=== PATIENT | male | born 1980 | race Caucasian/White ===

== ENCOUNTER 2017-03-22 09:20 | Emergency (ER) | payer SELFPAY ==
[~2017-03-22] VITALS: Ht 175.3 cm; Wt 104.3 kg
[2017-03-22] MEDS ORDERED: IV NORMAL SALINE 1000ML BAG 1,000 ML IV ONE (10:15)
[2017-03-22 10:56] LABS: CALCIUM 8.4 mg/dL (8.5-10.1); GFR 84.5; POTASSIUM 4.9 mmol/L (3.5-5.1)
[2017-03-22 10:58] LABS: C-REACTIVE PROTEIN 10.3 mg/L (0-3.3)
[2017-03-22 11:08] LABS: BILIRUBIN,URINE NEGATIVE (NEG); GLUCOSE,URINE NEGATIVE (NEG); NITRITE,URINE NEGATIVE (NEG); PROTEIN,URINE NEGATIVE (NEG-TRACE)
[2017-03-22 11:09] LABS: CKMB MASS 1.4 ng/mL (0.0-3.6)
[2017-03-22 11:16] LABS: SQUAMOUS EPITHELIAL CELL,UR OCC /LPF
[2017-03-22 11:17] LABS: BACTERIA,URINE FEW /HPF (0-FEW); BARBITURATES NEG (NEG); BENZODIAZEPINES NEG (NEG); CANNABINOIDS NEG (NEG); COCAINE POS (NEG); METHADONE NEG (NEG); OPIATES POS (NEG); PHENCYCLIDINE NEG (NEG)
--- NOTE | 2017-03-22 11:37 | RAD ---
CT head without contrast 03/22/2017 Clinical indication: Syncope. Comparison: None. Technique: Multiple CT images of the head were obtained without contrast. RS Compliance Statement: One or more of the following individualized dose reduction techniques were utilized for this examination: 1. Automated exposure control 2. Adjustment of the mA and/or kV according to patient size 3. Use of iterative reconstruction technique Findings: No acute intracranial hemorrhage or extra-axial fluid collection. The rai-white matter interfaces are maintained. No midline shift. The ventricles and subarachnoid spaces are normal in size and configuration for age. The visualized mastoid air cells and paranasal sinuses are well aerated. Impression: No acute intracranial hemorrhage.
[2017-03-22 12:14] LABS: BASO % 0 % (0-3); EOS % 4 % (0-3); HEMATOCRIT 43.9 % (39.0-53.0); HEMOGLOBIN 14.7 g/dL (13.0-17.5); LYMPH # 1.8 x10^3/uL (1.0-4.8); LYMPH % 20 % (24-48); MEAN CORPUSCULAR HEMOGLOBIN 30 pg (25-35); MEAN CORPUSCULAR HGB CONC 33 g/dL (31-37); MEAN CORPUSCULAR VOLUME 90 fL (79-100); MONO % 12 % (0-9); NEUT % 63 % (31-73); PLATELET COUNT 350 x10^3/uL (140-400); RED BLOOD COUNT 4.87 x10^6/uL (4.30-5.70); RED CELL DISTRIBUTION WIDTH 13.2 % (11.5-14.5); WHITE BLOOD COUNT 9.2 x10^3/uL (4.0-11.0)
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
--- NOTE | 2017-03-22 13:18 | EKG ---
[facility] [address] [place] [address] Test Date: 2017-03-22 Test Time: 09:49:53 Pat Name: DEWEY KEBEDE Department: Room: Gender: M Doors Prefitter: : 1980 Requested By: SUDHAKAR ERIC Order Number: [id number] Reading MD: Measurements Intervals [place] Rate: 78 P: 34 [place]: 134 QRS: 58 QRSD: 84 T: 26 QT: 348 QTc: 400 Interpretive Statements SINUS RHYTHM QRS(T) CONTOUR ABNORMALITY CONSIDER INFERIOR MYOCARDIAL DAMAGE POSSIBLY ABNORMAL ECG RI6.01 No previous ECG available for comparison
--- NOTE | 2017-03-22 13:38 | RAD ---
AP chest 03/22/2017 Clinical indication: Syncope. Comparison: None. Findings: Cardiac and mediastinal silhouettes are unremarkable. No pleural effusion, pneumothorax or focal consolidation. Impression: No acute cardiopulmonary abnormality.
[2017-03-22 13:50] VITALS: BP 126/78
--- NOTE | 2017-03-22 14:31 | RAD ---
4 views right and left knee 03/22/2017 Clinical indication: Syncope with fall and bilateral knee pain. Comparison: None. Findings: Right knee: There is a tiny subcentimeter curvilinear ossific density adjacent to the lateral tibial plateau only seen on the frontal view. Normal bony alignment. No significant knee joint effusion. Soft tissues are unremarkable. Left knee: No acute fracture or traumatic malalignment. Joint spaces are maintained. No significant knee joint effusion. Impression: 1. Subcentimeter curvilinear ossific density adjacent to the lateral tibial plateau only seen on one view. Findings may be artifactual, though avulsion fracture from an unknown donor site cannot be excluded. If there is point tenderness, nonemergent MRI knee could be obtained. 2. No acute left knee osseous abnormality.
== END 2017-03-22 13:55 | disposition home or self-care (01) ==
LOC: ER 09:20
DX: S80.01XA Contusion of right knee, initial encounter (principal); S80.02XA Contusion of left knee, initial encounter; R55 Syncope and collapse; F19.10 Other psychoactive substance abuse, uncomplicated; X58.XXXA Exposure to other specified factors, initial encounter; Y93.E9 Activity, other interior property and clothing maintenance; Y92.89 Other specified places as the place of occurrence of the external cause; Y99.8 Other external cause status
CPT/HCPCS: 36415; 70450; 71010; 73564; 80048; 80307; 81001; 82553; 84443; 84484; 85025; 86140; 93005; 96360; 99285; J7030; G0479